=== PATIENT | female | born 1990 | race Caucasian/White ===

== ENCOUNTER 2018-04-23 13:20 | Emergency (ER) | payer OTHER, SELFPAY ==
[2018-04-23 14:41] LABS: Urine Blood TRACE (NEG); Urine Glucose NEGATIVE (NEG); Urine Protein NEGATIVE (NEG); Urine Specific Gravity 1.025 (1.005-1.030)
[2018-04-23] MEDS ORDERED: METOCLOPRAMIDE 10 MG/2mL INJ ONE (14:45)
[2018-04-23] MEDS ORDERED: NA CHLORIDE 0.9% 1,000 ML ONE (14:45)
[2018-04-23 14:48] LABS: Urine Bacteria <20 /HPF (<20); Urine Culture Reflex Order NOT NEEDED; Urine RBC <5 /HPF (NONE SEEN)
[2018-04-23 14:57] LABS: Absolute Lymphocytes (CBC) 1.5 K/uL (0.7-4.9); Absolute Monocytes 0.8 K/uL (0.1-1.3); Absolute Neutrophil 3.8 K/uL (1.8-8.0); Basophils % 0.7 % (0-1.3); Eosinophils % 1.7 % (0-4.4); Hematocrit 46.4 % (36.0-45.0); Lymphocytes % 24.4 % (15.3-44.8); MCH 30.3 pg (27.0-35.0); MCV 89.8 fL (80-100); Monocytes % 12.3 % (3.3-12.3); RBC Red Blood Cell Count 5.17 M/uL (3.86-4.86)
[2018-04-23 15:14] LABS: Albumin 3.6 g/dL (3.4-5.0); Bilirubin Total 0.5 mg/dL (0.2-1.0); Potassium 3.8 mmol/L (3.5-5.1); Protein, Total 7.1 g/dL (6.4-8.2)
--- NOTE | 2018-04-23 16:03 | ER ---
Nurse's Notes [facility] Name: Alva Mondragon Age: 27 yrs Sex: Female : 1990 Arrival Date: 04/23/2018 Time: 13:23 Bed 15 Private MD: Diagnosis: Vomiting;Diarrhea, unspecified;Acute pharyngitis;Bronchitis, not specified as acute or chronic Presentation: 04/23 13:35 Presenting complaint: Patient states: cough, headache, sore throat, ear pain, ss vomiting/diarrhea x 5 days. Transition of care: patient was not received from another setting of care. Resp Distress? No respiratory distress is noted at this time. Onset of symptoms was April 18, 2018. Risk Assessment: Do you want to hurt yourself or someone else? Patient reports no desire to harm self or others. Initial Sepsis Screen: Does the patient meet any 2 criteria? No. Patient's initial sepsis screen is negative. Does the patient have a suspected source of infection? No. Patient's initial sepsis screen is negative. Care prior to arrival: None. 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 - Social history:: Smoking status: Patient uses tobacco products, smokes one-half pack cigarettes per day. - Ebola Screening: : Patient denies exposure to infectious person Patient denies travel to an Ebola-affected area in the 21 days before illness onset. Screenin:06 Abuse screen: Denies threats or abuse. Nutritional screening: No deficits noted. la1 Tuberculosis screening: No symptoms or risk factors identified. Fall Risk None identified. Assessment: 14:05 General: Appears in no apparent distress. Behavior is calm, cooperative. Pain: la1 Complains of pain in frontal headache. Neuro: Level of Consciousness is awake, alert, obeys commands, Oriented to person, place, time, situation. Cardiovascular: Heart tones S1 S2 present Capillary refill < 3 seconds. Respiratory: Airway is patent Respiratory effort is even, unlabored, Respiratory pattern is regular, symmetrical, Breath sounds are clear bilaterally. Respiratory: Reports cough that is non-productive, dry, persistent. GI: Abdomen is non-distended, obese. 14:52 Reassessment: Patient appears in no apparent distress at this time. No changes from la1 previously documented assessment. Patient and/or family updated on plan of care and expected duration. Pain level reassessed. Patient is alert, oriented x 3, equal unlabored respirations, skin warm/dry/pink. Vital Signs: 13:37 BP 109 / 82; Pulse 65; Resp 16; Temp 98.8(TE); Pulse Ox 97% on R/A; Weight 104.33 kg; ss Height 5 ft. 4 in. (162.56 cm); Pain 5/10; 13:37 Body Mass Index 39.48 (104.33 kg, 162.56 cm) ss ED Course: 13:23 Patient arrived in ED. sb2 13:36 Triage completed. ss 13:37 Arm band placed on right wrist. ss 13:48 Anthony Albert, PORSHA is Primary Nurse. la1 14:07 Placed in gown. Bed in low position. Call light in reach. la1 14:08 Cholo Perea PA is PHCP. angel 14:08 Jayden Kelly MD is Attending Physician. angel 14:52 Inserted saline lock: 20 gauge in right antecubital area, using aseptic technique. la1 Blood collected. 16:15 No provider procedures requiring assistance completed. IV discontinued, intact, ss bleeding controlled, No redness/swelling at site. Pressure dressing applied. Administered Medications: 14:52 Drug: NS 0.9% 1000 ml Route: IV; Rate: 1 bolus; Site: right antecubital; la1 14:52 Drug: Reglan 10 mg Route: IVP; Site: right antecubital; la1 15:13 Follow up: Response: No adverse reaction; Nausea is decreased la1 Outcome: 16:02 Discharge ordered by . angel 16:15 Discharged to home ambulatory. ss 16:15 Condition: good 16:15 Discharge instructions given to patient, Instructed on discharge instructions, follow up and referral plans. medication usage, Demonstrated understanding of instructions, follow-up care, medications, Prescriptions given X 2. 16:16 Patient left the ED. ss Signatures: Cholo Perea PA PA jmm Smirch, Shelby, RN RN ss Anthony Albert RN RN la1 Brittanie Benedict 2
--- NOTE | 2018-04-23 16:03 | EDPHYS ---
Physician Documentation [facility] Name: Alva Mondragon Age: 27 yrs Sex: Female : 1990 Arrival Date: 04/23/2018 Time: 13:23 Bed 15 Private MD: ED Physician Jayden Kelly HPI: 04/23 14:31 This 27 yrs old Female presents to ER via Ambulatory with complaints of jmm Cough, Congestion, Vomiting - 6 Weeks Preg. 14:31 The patient or guardian reports cough. Onset: The symptoms/episode began/occurred jmm gradually, 5 day(s) ago. Associated signs and symptoms: Pertinent positives: diarrhea, nausea, sore throat, vomiting. This is a 27 year old female with a history of anxiety, depression that presents to the ED with cough, congestion, sore throat, vomiting and diarrhea beginning approx 5 days ago. LMP 6 weeks prior. Patient denies vaginal bleeding. . 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 - Social history:: Smoking status: Patient uses tobacco products, smokes one-half pack cigarettes per day. - Ebola Screening: : Patient denies exposure to infectious person Patient denies travel to an Ebola-affected area in the 21 days before illness onset. ROS: 14:31 Eyes: Negative for injury, pain, redness, and discharge, Cardiovascular: Negative for jmm chest pain, palpitations, and edema. 14:31 Back: Negative for injury and pain, MS/Extremity: Negative for injury and deformity, Skin: Negative for injury, rash, and discoloration, Neuro: Negative for headache, weakness, numbness, tingling, and seizure. 14:31 Constitutional: Positive for body aches, malaise. 14:31 Respiratory: Positive for cough. 14:31 Abdomen/GI: Positive for nausea and vomiting, diarrhea. 14:31 All other systems are negative. Exam: 14:31 Constitutional: This is a well developed, well nourished patient who is awake, alert, jmm and in no acute distress. 14:31 Eyes: EOMI, no conjunctival erythema appreciated Chest/axilla: Normal chest wall appearance and motion. 14:31 Cardiovascular: Rate: normal, Rhythm: regular. 14:31 Respiratory: the patient does not display signs of respiratory distress, Respirations: normal, Breath sounds: are clear throughout. 14:31 Abdomen/GI: Inspection: obese Bowel sounds: normal, Palpation: soft, nontender, in all quadrants. 14:31 Skin: Appearance: Color: normal in color. 14:31 Neuro: Orientation: is normal, Mentation: is normal, Memory: is normal. 14:31 Psych: Behavior/mood is pleasant, cooperative. Vital Signs: 13:37 BP 109 / 82; Pulse 65; Resp 16; Temp 98.8(TE); Pulse Ox 97% on R/A; Weight 104.33 kg; ss Height 5 ft. 4 in. (162.56 cm); Pain 5/10; 13:37 Body Mass Index 39.48 (104.33 kg, 162.56 cm) ss MDM: 14:21 Patient medically screened. [facility] 16:01 Data reviewed: vital signs, nurses notes, lab test result(s). Counseling: I had a [facility] detailed discussion with the patient and/or guardian regarding: the historical points, exam findings, and any diagnostic results supporting the discharge/admit diagnosis, lab results, the need for outpatient follow up, to return to the emergency department if symptoms worsen or persist or if there are any questions or concerns that arise at home. 04/23 14:21 Order name: Urine Microscopic Only; Complete Time: 14:52 em1 04/23 14:26 Order name: Urine Dipstick--Ancillary (enter results); Complete Time: 14:52 ag 04/23 14:26 Order name: Urine --Ancillary (enter results); Complete Time: 14:52 ag 04/23 14:31 Order name: Strep; Complete Time: 15:14 [facility] 04/23 14:31 Order name: CBC with Diff; Complete Time: 15:14 [facility] 04/23 14:31 Order name: CMP; Complete Time: 15:15 [facility] 04/23 14:31 Order name: Saline Lock; Complete Time: 14:52 [facility] 04/23 15:11 Order name: Throat Culture EDMS Administered Medications: 14:52 Drug: NS 0.9% 1000 ml Route: IV; Rate: 1 bolus; Site: right antecubital; la1 14:52 Drug: Reglan 10 mg Route: IVP; Site: right antecubital; la1 15:13 Follow up: Response: No adverse reaction; Nausea is decreased la1 Disposition: 17:41 Co-signature as Attending Physician, Jayden Kelly MD Available for consultation at ps1 all times. . Disposition: 04/23/18 16:02 Discharged to Home. Impression: Vomiting, Diarrhea, unspecified, Acute pharyngitis, Bronchitis, not specified as acute or chronic. - Condition is Stable. - Discharge Instructions: Acute Bronchitis, Adult, Food Choices to Help Relieve Diarrhea, Adult, Diarrhea, Adult, Pharyngitis. - Prescriptions for Reglan 5 mg Oral tablet - take 1 tablet by ORAL route every 6 hours; 30 tablet. Albuterol Sulfate 90 mcg/actuation - inhale 1-2 puff by INHALATION route every 4-6 hours; 1 Inhaler. - Medication Reconciliation Form, Thank You Letter, Antibiotic Education, Prescription Opioid Use form. - Follow up: Private Physician; When: 2 - 3 days; Reason: Recheck today's complaints, Continuance of care, Re-evaluation by your physician. Signatures: Dispatcher [employer] EDMS Cholo Perea PA PA Cecy Gooden RN RN ss Attema, Lee, RN RN laJayden Brewer MD MD ps1 Corrections: (The following items were deleted from the chart) 16:16 16:02 04/23/2018 16:02 Discharged to Home. Impression: Vomiting; Diarrhea, unspecified; ss Acute pharyngitis; Bronchitis, not specified as acute or chronic. Condition is Stable. Forms are Medication Reconciliation Form, Thank You Letter, Antibiotic Education, Prescription Opioid Use. Follow up: Private Physician; When: 2 - 3 days; Reason: Recheck today's complaints, Continuance of care, Re-evaluation by your physician. angel
== END 2018-04-23 16:16 | disposition home or self-care (01) ==
LOC: ER 13:20
DX: J20.9 Acute bronchitis, unspecified (principal); R19.7 Diarrhea, unspecified; J02.9 Acute pharyngitis, unspecified; O99.331 Smoking (tobacco) complicating pregnancy, first trimester; F17.210 Nicotine dependence, cigarettes, uncomplicated; Z3A.01 Less than 8 weeks gestation of pregnancy; Z88.3 Allergy status to other anti-infective agents
CPT/HCPCS: 36415; 80053; 81003; 81015; 81025; 85025; 87070; 87081; 96374; 99284; J2765; J7030

== ENCOUNTER 2021-03-19 05:01 | Inpatient (IN) | payer OTHER ==
[2021-03-19] MEDS ORDERED: BUTORPHANOL 1 MG/ML INJ IV PRN (06:23)
[2021-03-19] MEDS ORDERED: PROMETHAZINE INJ 25 MG/ML AMP IM PRN (06:23)
[2021-03-19] MEDS ORDERED: Ringers Lactate 1,000 ML IV PRN (06:23)
--- OUTSIDE RECORDS SUMMARY | 2021-03-19 06:32 | XMS REPORT | Continuity of Care Document ---
:1990 Author Organization [facility] t Address [address] [place] [address] Care Team Providers Name Role Phone SARAH Attending Clinician Unavailable Terence STORY Attending Clinician Unavailable Jacinto Attending Clinician Rigo Fry Attending Clinician Payers Payer Name Policy Type Policy Number Effective Date Expiration Date madie [facility] MEDICAID STAR [id number] 2020 00:00:00 Problems Condition Condition Condition Status Onset Resolution Last Treating Co mments Source Name Details Category Date Date Treatment Clinician Date WEEKLY Diagnosis Active 2021-03-13 Mem oria BPP, BMI 6-18 14:04:00 l WEEKLY 00:00: [place] BPP, BMI 00 Active 03/01/2021 MH Pindall BPP Diagnosis Active 2021-02-27 Mem oria 6-16 13:09:00 l BPP 00:00: [place] 00 Active 02/27/2021 MH Pindall ABDOMINAL Diagnosis Active 2020-11-08 Memoria AND BACK 2- 09:16:00 l CRAMPING 08:00: Anthony ABDOMINAL 00 AND BACK CRAMPING Active 11/02/2020 MH Pindall COMP Diagnosis Active 2020-11-20 Memoria ANATOMY US 2 10:39:00 l FOR COMP 00:00: [place] ANOMALIES 00 AND ANATOMY US FOR ANOMALIES AND Active 10/17/2020 MH Pindall EARLY Diagnosis Active 2020-11-05 Mem oria ANATOMY 09-20 17:02:00 l AND CX EARLY 00:00: [place] LENGTH ANATOMY 00 AND CX LENGTH Active 09/20/2020 [facility] NIPT, Diagnosis Active 2019-092020-12-28 Mem oria FIRST 10-21 14:08:00 l TRIMESTER NIPT, 00:00: Girma romero US FOR FIRST 00 VIABILITY TRIMESTER US FOR VIABILITY Active 08/20/2020 [place] O00.90 - Diagnosis Active 2019-092020-07-27 M emoria UNSPECIFIE 09-26 12:33:00 l D ECTOPIC O00.90 - 00:01: Her burnett UNSPECIFIE 00 D ECTOPIC Active 07/27/2020 [facility] Diagnosis Active 2019-092021-03-15 Memoria RELATED-VA 0- 13:18:00 l GINAL 08:00: Anthony 00 RELATED-VA GINAL Active 06/14/2020 P[place] 7-8 WEEKS Diagnosis Active 2018-05-31 Memoria /B 05-31 17:43:00 l LEEDING 7-8 00:00: [place] WEEKS 00 /B LEEDING Active 05/31/2018 [facility] [place] Less than Problem 2018-12-18 Me moria 8 weeks 14:04:51 l gestation Less [place] of than 8 weeks gestation of 12/18/2018 [facility] History of Past Illness Condition Condition Condition Status Onset Resolution Last Treating Co mments Source Name Details Category Date Date Treatment Clinician Date Hemorrhage Problem 2018-12-18 2018-12-18 Memoria in early 06-05 14:04:51 14:04:51 l , 03:58: Girma romero unspecifie Hemorrhage 35 d in early , unspecifie d 06/05/2018 12/18/2018 [facility] Abnormal Problem 2017-2018-12-18 2018-12-18 Memoria uterine 05-31 14:04:51 14:04:51 l and Abnormal 05:00: iGrma romero vaginal uterine 00 bleeding, and unspecifie vaginal d bleeding, unspecifie d 05/31/2018 12/18/2018 [facility] Other Problem 2017-2018-12-18 2018-12-18 M emoria specified 05-31 14:04:51 14:04:51 l diseases Other 05:00: [place] and specified 00 conditions diseases complicati and ng conditions , complicati childbirth ng and the , puerperium childbirth and the puerperium 05/31/2018 12/18/2018 [facility] Allergies, Adverse Reactions, Alerts Allergy Allergy Status Severity Reaction(s) Onset Inactive Treating Comm ents Source Name Type Date Date Clinician Zithroma Zithroma Active Memori a x x l Anthony Social History Smoking Status Start Date Stop Date Source Social History [facility] [place] Medications Ordered Filled Start Stop Current Ordering Indication Dosage Frequency Signature Comments Components Source Medication Medication Date Date Medication? Clinician (SIG) Name Name Metoclopram No 10 mg = 1 M emoria mary 10 MG 05-31 tab, PO, l Oral Tablet 22:56: Q8H, X 5 He rmann [Reglan] 00 day, # 15 tab, 0 Refill(s) Tylenol No 650 mg, Memoria 05-31 Route: PO, l 22:22: Drug form: Anthony 00 TAB, ONCE, Dosing Weight 102.727, kg, Priority: STAT, Start date: 05/31/18 17:22:00 CDT, Stop date: 05/31/18 17:22:00 CDT Saline No Notes: Memoria Flush 0.9% 05-31 (Same as: l 17:53: BD Anthony 00 Posiflush) Vital Signs Vital Name Observation Time Observation Value Comments Source Systolic (mm Hg) 2018-05-31 22:24:00 Keny rial [place] Diastolic (mm Hg) 2018-05-31 22:24:00 Mem orial Anthony Respitory Rate 2018-05-31 22:24:00 Memori al Anthony Temperature Oral (F) 2018-05-31 22:24:00 98.1 F [facility] [place] Temperature Oral (F) 2018-05-31 20:42:00 98.1 F [facility] Respitory Rate 2018-05-31 20:42:00 Memori al [place] Systolic (mm Hg) 2018-05-31 20:42:00 Keny rial Anthony Diastolic (mm Hg) 2018-05-31 20:42:00 Mem orial [place] BMI Calculated 2018-05-31 17:51:00 Memori al [place] Weight 2018-05-31 17:51:00 [facility] [place] Height 2018-05-31 17:51:00 162.56 cm [facility] [place] Respitory Rate 2018-05-31 17:51:00 Margarette al Anthony Temperature Oral (F) 2018-05-31 17:51:00 99.1 F [facility] Heart Rate 2018-05-31 17:51:00 [facility] [place] Systolic (mm Hg) 2018-05-31 17:51:00 Keny sunil Silverann Diastolic (mm Hg) 2018-05-31 17:51:00 Mem orial [place] Procedures Procedure Date / Time Performed Performing Clinician [facility] Skin biopsy [facility] [place] Encounters Start End Encounter Admission Attending Care Care Encounter Source Date/Time Date/Time Type Type Clinicians Facility Department ID 2021-03-13 Outpatient SARAH, [facility] [id number] [place] 12:09:16 [facility] 2021-03-13 Outpatient SARAH, [facility] [id number] [place] 11:36:38 [facility] 2021-03-04 Outpatient [facility] [id number] FB 10:51:08 2021-02-27 Outpatient SARAH, [facility] [id number] [place] 11:46:16 [facility] 2021-02-20 Outpatient SARAH, [facility] [id number] [place] 11:43:30 [facility] 2021-02-19 Outpatient SARAH, [facility] [id number] [place] 14:40:38 [facility] 2021-02-12 Outpatient [facility] [id number] [place] 13:04:55 [facility] 2021-01-29 Outpatient SARAH, [facility] [id number] [place] 11:59:42 [facility] 2021-01-29 Outpatient [facility] [id number] [place] 10:44:30 [facility] 2021-01-19 Outpatient SARAH, [facility] [id number] [place] 04:18:39 [facility] 2021-01-19 Outpatient [facility] [id number] [place] 04:18:39 [facility] 2021-01-08 Inpatient [facility] [id number] MHF B 10:34:38 2021-03-15 2021-03-15 Telephone TETE Pratt [facility] [id number] 00:00:00 00:00:00 Denise SUGAR [id number] [place] [facility] [id number] [address] 4 [id number] AND 2 WOMENS 2021-03-13 2021-03-13 Routine TETE Balderas [facility] [id number] 11:36:28 12:09:17 Brianna SUGAR [id number] [place] [id number] [address] 2 [id number] AND 2 WOMENS 2021-02-27 2021-02-27 Outpatient [facility]FB [facility]FB [id number] MHFB 13:01:00 13:01:00 2021-02-27 2021-02-27 Routine TETE Balderas [facility] [id number] 10:23:54 11:46:16 Brianna SUGAR [id number] [place] [id number] [address] 0 [id number] AND 2 WOMENS 2020-11-20 2020-12-19 Outpatient Jacinto, [facility] MH[facility] [id number] 09:50:00 23:59:00 Subhratha 2020-11-20 2020-11-20 Outpatient [facility]FB [facility]FB [id number] MHFB 09:50:00 09:50:00 2020-10-17 2020-11-15 Outpatient Jacinto, [facility]SL [id number] 09:01:00 23:59:00 Subhratha 2020-11-02 2020-11-02 Emergency E MHFB MHFB [id number] MHFB 17:32:00 17:32:00 2020-10-17 2020-10-17 Outpatient [facility]FB [facility]FB [id number] MHFB 09:01:00 09:01:00 2020-09-17 2020-10-16 Outpatient Jacinto, [facility]SL [facility]SL [id number] 09:26:00 23:59:00 Subhratha 2020-09-17 2020-09-17 Outpatient MHFB [facility]FB [id number] MHFB 09:26:00 09:26:00 2020-07-27 2020-07-27 Outpatient Jacinto, [id number] 12:23:00 23:59:00 Subhratha [id number] 2018-05-31 2018-05-31 Outpatient Lele Fry [facility] [id number] 12:39:00 18:00:00 Q 00 Results Test Description Test Time Test Comments Results Result Comments Source ELECTROLYTES 2018-05-31 11.7 [facility] [place] 20:31:00 ELECTROLYTES 2018-05-31 119 [facility] [place] 20:31:00 ELECTROLYTES 2018-05-31 8.1 [facility] [place] 20:31:00 ELECTROLYTES 2018-05-31 77 [facility] [place] 20:31:00 ELECTROLYTES 2018-05-31 0.70 [facility] Her [place] 20:31:00 ELECTROLYTES 2018-05-31 9 [facility] [place] 20:31:00 ELECTROLYTES 2018-05-31 141 [facility] [place] 20:31:00 ELECTROLYTES 2018-05-31 25 [facility] [place] 20:31:00 ELECTROLYTES 2018-05-31 3.7 [facility] Her [place] 20:31:00 ELECTROLYTES 2018-05-31 108 [facility] [place] 20:31:00 ENDOCRINOLOGY 2018-05-31 [id number] [facility] He rmann 20:31:00 HEMATOLOGY 2018-05-31 0.4 [facility] Bree nn 20:31:00 HEMATOLOGY 2018-05-31 2.2 [facility] [place] 20:31:00 HEMATOLOGY 2018-05-31 5.3 [facility] [place] 20:31:00 HEMATOLOGY 2018-05-31 5.4 [facility] [place] 20:31:00 HEMATOLOGY 2018-05-31 27.5 [facility] [place] 20:31:00 HEMATOLOGY 2018-05-31 0.8 [facility] [place] 20:31:00 HEMATOLOGY 2018-05-31 0.7 [facility] [place] 20:31:00 HEMATOLOGY 2018-05-31 65.6 [facility] [place] 20:31:00 HEMATOLOGY 2018-05-31 0.1 [facility] [place] 20:31:00 HEMATOLOGY 2018-05-31 0.1 [facility] [place] 20:31:00 HEMATOLOGY 2018-05-31 33.5 [facility] [place] nn 20:31:00 HEMATOLOGY 2018-05-31 212 [facility] [place] 20:31:00 HEMATOLOGY 2018-05-31 13.6 [facility] [place] 20:31:00 HEMATOLOGY 2018-05-31 8.3 [facility] nn 20:31:00 HEMATOLOGY 2018-05-31 20:31:00 Test Item Value Reference Range Interpretation Comme nts MCH (test code = MCH) 30.2 pg 27.0-31.0 [facility] [id number] 20:31:0090.2[facility] 2018-05-31 20:31:008.1[facility] [id number] 20:31:004.53[facility] [id number] 20:31:0013.7[facility] [id number] 20:31:0040.9[facility]INE AND [id number] 19:57:002[facility] URINE AND [id number] 19:57:009[facility] [id number] 19:57:00Negative *NA*(05/31/18 2:57 PM)[facility] [id number] 19:57:00Trace *ABN*(05/31/18 2:57 PM)[facility] [id number] 19:57:00Negative (05/31/18 2:57 PM)[facility] [id number] 19:57:002.0[facility] [id number] 19:57:00Moderate *ABN*(05/31/18 2:57 PM)[facility] [id number] 19:57:00Slight *ABN*(05/31/18 2:57 PM)[facility] [id number] 19:57:00 Test Item Value Reference Range Interpretation Comments UA Spec Grav (test code = UA Spec 1.019 1 Grav) [facility] [id number] 19:57:00Yellow *NA*(05/31/18 2:57 PM) [facility] [id number] 19:57:00 Test Item Value Reference Range Interpretation Comments UA pH (test code = UA pH) 5.0 1 5.0-8.0 [facility] [place]
[2021-03-19 06:58] VITALS: BMI 47.2
[2021-03-19] MEDS ORDERED: Ringers Lactate 1,000 ML IV SCH (07:00)
[2021-03-19] MEDS ORDERED: OXYTOCIN/LR 20 UNIT/1,000 ML BAG IV SCH ×2 (07:00→09:00)
[2021-03-19 07:27] LABS: Basophils % 0.4 % (0-1.3); Hematocrit 35.8 % (36.0-45.0); Lymphocytes % 30.4 % (15.3-44.8); MPV 9.5 fL (7.6-11.3); RBC Red Blood Cell Count 4.28 M/uL (3.86-4.86)
[2021-03-19] MEDS ORDERED: METHYLERGONOVINE 0.2MG/ML AMP IM ONE (08:08)
[2021-03-19] MEDS ORDERED: LIDOCAINE 1% MPF 30 ML VIAL ONE (08:10)
[2021-03-19] MEDS ORDERED: METHYLERGONOVINE 0.2MG/ML AMP IM PRN (08:31)
[2021-03-19] MEDS ORDERED: DIPHENHYDRAMINE 25 MG TAB/CAP PO PRN (08:31)
[2021-03-19] MEDS ORDERED: Oxycodone HCl/Acetaminophen 1 TAB TAB PO PRN (08:31)
[2021-03-19] MEDS ORDERED: BISACODYL 10 MG RECTAL SUPP PR PRN (08:31)
[2021-03-19] MEDS ORDERED: DOCUSATE NA/SENNA CONC 1 TAB PO PRN (08:31)
[2021-03-19] MEDS ORDERED: ACETAMINOPHEN 500 MG TAB PO PRN (08:31)
[2021-03-19] MEDS: Oxycodone HCl/Acetaminophen 1 TAB TAB PO PRN (09:16)
[2021-03-19] MEDS: IBUPROFEN 200 MG TAB PO PRN ×2 (09:16→22:57)
--- NOTE | 2021-03-19 09:42 | PREOPHP ---
Date of Admission: 03/19/2021 History Of Present Illness: This is a 30-year-old 3, para 1, previous history of del eugenia that apparently did not survive, 38 weeks 1 day, followed antepartum in the [facility], came into our institution reporting rupture of membranes, indeed rupture of membra naomi had occurred, clear fluid. The patient was 1 to 2 cm, 70% to 80% effaced, baby with normal heart tones. The patient was given the options of leaving to go to [place] or staying here. She elect ed stay here. The patient went to [facility], but is very uncooperative and is not pushing effectively and declines Pitocin. Her family is trying to work with the patient, but she stated is very uncoope rative. Family History: Not contributory. Allergies: SHE HAS A HISTORY OF ERYTHROMYCIN ALLERGY. Past Surgical History: No previous surgeries that we are aware of. Physical Examination: HEENT: Clear. Pupils equal, round, reactive to light and accommodation. Conjunctivae well perfused . No oral, lingual, or buccal lesion. Breast: Not done. The patient term size. She is a large woman, 275 pounds. Extremities: Clear. Assessment And Plan: As stated, she is completely dilated, but declines to push effectively and decl ariana Pitocin. We are awaiting delivery, which should occur reasonably soon. HARRIS/QUAN Voice ID: [id number]
--- NOTE | 2021-03-19 19:03 | OP ---
Surgeon: Noe Magaña MD Alva Mondragon is a 30-year-old 3, para 1, premature delivery apparently 24 weeks or thereabo uts that almost immediately. The patient has been on progesterone injections during the pregnan cy, which her has been administering. Came to our facility with rupture of membranes 1.5 cm 80% effaced, vertex, and in early labor. Decided to stay. Went rapidly to complete. Second stage o f about 30-45 minutes, primarily because the patient would not push and was not cooperative, which sh e did. She was a rapid delivery of a 7 pounds 3 ounce male infant. Nuchal cord x1. Apgars 9 and 9. Small first-degree laceration involving the right labia minora, sutured with 2-0 chromic after loca l infiltration. Schultze delivery of the placenta, which inspected and noted to be intact and normal . Mild uterine hypotonus. 0.2 mg of Methergine IM as well as IV drip Pitocin and massage. Estimate d blood loss 350-400 cc. Labs are pending, but the patient is doing well at this time. We have no p renatal record on her, but at this point, it appears to be normal with routine vaginal deli very at 38 weeks and 1 day. HARRIS/QUAN Voice ID: [id number] Report ID: [id number]
[2021-03-19 20:51] LABS: Barbiturates NEGATIVE (NEGATIVE); Benzodiazepines NEGATIVE (NEGATIVE); Cocaine NEGATIVE (NEGATIVE); METHAMPHETAM NEGATIVE (NEGATIVE); Methadone NEGATIVE (NEGATIVE); Opiates NEGATIVE (NEGATIVE); Phencyclidine NEGATIVE (NEGATIVE); THC Cannibis NEGATIVE (NEGATIVE)
[2021-03-19 21:02] LABS: Urine Appearance CLOUDY (Clear); Urine Bilirubin NEGATIVE (Negative); Urine Blood 3+ (Negative); Urine Color YELLOW (Yellow); Urine Glucose NEGATIVE (Negative); Urine Protein NEGATIVE (Negative); Urine Specific Gravity 1.015 (1.005-1.030); Urine Urobilinogen 0.2 mg/dL (0.2-1.0)
[2021-03-19 21:05] LABS: Urine Microscopic Reflex ORDER UMIC
[2021-03-19 21:30] LABS: Urine Bacteria >50 /HPF (<20); Urine RBC TNTC /HPF (NONE SEEN)
[2021-03-20 00:10] LABS: RPR (Rapid Plasma Reagin) NON-REACT (NON-REACT)
[2021-03-20] MEDS: Oxycodone HCl/Acetaminophen 1 TAB TAB PO PRN (04:21)
[2021-03-20] MEDS ORDERED: MEASLES,MUMPS,RUBELLA VAC 0.5ML SQVAC ONE (07:40)
--- NOTE | 2021-03-20 09:03 | DS ---
This is a 30-year-old 3, para 0, 1 miscarriage, apparently early in the and 1 ken ture delivery at 21 weeks that did not survive. Followed antepartum by [facility], was given [place]an injections on a weekly basis and restricted activity. Came into our institution in ne[place] y labor with rupture of membranes and decided to stay at our institution. Went rapidly to complete, second stage of about 30 minutes. The patient uncooperative as far as pushing, but finally began to push and expelled the baby quickly thereafter. A 7 pound 3 ounce infant. Loose nuchal cord x1. Apga rs 9 and 9. First-degree laceration involving the right labia minora, sutured with running locked st itch of 2-0 chromic after local infiltration. Schultze delivery of the placenta, which was inspected and noted to be intact and normal. Blood loss of about 300 to 350 cc initially. Mildly hypotonic. 0.2 mg of Methergine was given IM as well as massage. ; afebrile, ambulating. Lochia is normal. She requests rubella immunization before she is dismissed. We will of course comply. She h as had her Tdap immunization during the , but other family members have not. She was given full dismissal instructions. She is to call her clinic and they will tell her what to do next. She knows to report any temperature elevation of 100 degrees or greater, severe pain, heavy bleeding, or any other type of abnormalities. Final Diagnoses: Intrauterine gestation at approximately 38 weeks and 1 day as best as can be determ ined, rupture of membranes, vaginal delivery. Rubella immunization offered. Full post talk. HARRIS/ELLIOTL Voice ID: [id number] Report ID: [id number]
[2021-03-20] MEDS: IBUPROFEN 200 MG TAB PO PRN (13:33)
[2021-03-20 14:22] VITALS: BP 100/72; TEMP 97.5
[2021-03-21 13:27] LABS: HBsAG Nonreactive (Nonreactive)
== END 2021-03-20 14:00 | disposition home or self-care (01) | DRG 807 ==
LOC: L&D 05:01 → 2ND-WC 06:18
PROVIDERS: ADMIT Specialist; ATTEND Specialist
PROC: 10E0XZZ Delivery of Products of Conception, External Approach (ICD-10-PCS; principal; 2021-03-19)
PROC: 0HQ9XZZ Repair Perineum Skin, External Approach (ICD-10-PCS; 2021-03-19)
PROC: 4A1H7CZ Monitoring of Products of Conception, Cardiac Rate, Via Natural or Artificial Opening (ICD-10-PCS; 2021-03-19)
PROC: 10H073Z Insertion of Monitoring Electrode into Products of Conception, Via Natural or Artificial Opening (ICD-10-PCS; 2021-03-19)
DX: O70.0 First degree perineal laceration during delivery (principal); Z37.0 Single live birth; O62.2 Other uterine inertia; Z3A.38 38 weeks gestation of pregnancy; Z23 Encounter for immunization; Z20.822 Contact with and (suspected) exposure to COVID-19
CPT/HCPCS: 36415; 80307; 81003; 81015; 82947; 85025; 86592; 86762; 87077; 87086; 87088; 87186; 87340; G0433; J0595; J2210; J2550; J2590; U0003

== ENCOUNTER 2021-03-24 16:02 | Emergency (ER) | payer OTHER ==
--- OUTSIDE RECORDS SUMMARY | 2021-03-24 16:05 | XMS REPORT | Continuity of Care Document ---
:1990 Author Organization [facility] t Address [address] [place] [address] Care Team Providers Name Role Phone SARAH Attending Clinician Unavailable Terence STORY Attending Clinician Unavailable Jacinto Attending Clinician Rigo Fry Attending Clinician Payers Payer Name Policy Type Policy Number Effective Date Expiration Date madie [facility] MEDICA[facility] STAR [id number] 2020 00:00:00 Problems Condition Condition Condition Status Onset Resolution Last Treating Co mments Source Name Details Category Date Date Treatment Clinician Date WEEKLY Diagnosis Active 2021-03-20 Mem oria BPP, BMI 6-18 11:00:00 l WEEKLY 00:00: [place] BPP, BMI 00 Active 03/01/2021 MH Diamond BPP Diagnosis Active 2021-02-27 Mem oria 6-16 13:09:00 l BPP 00:00: [place] 00 Active 02/27/2021 MH Diamond ABDOMINAL Diagnosis Active 2020-11-08 Memoria AND BACK 2- 09:16:00 l CRAMPING 08:00: [place] ABDOMINAL 00 AND BACK CRAMPING Active 11/02/2020 MH Diamond COMP Diagnosis Active 2020-11-20 Memoria ANATOMY US 2- 10:39:00 l FOR COMP 00:00: [place] ANOMALIES 00 AND ANATOMY US FOR ANOMALIES AND Active 10/17/2020 MH Diamond EARLY Diagnosis Active 2020-11-05 Mem oria ANATOMY 1- 17:02:00 l AND CX EARLY 00:00: [place] LENGTH ANATOMY 00 AND CX LENGTH Active 09/20/2020 Diamond NIPT, Diagnosis Active 2019-092020-12-28 Mem oria FIRST 10-21 14:08:00 l TRIMESTER NIPT, 00:00: Girma romero US FOR FIRST 00 VIABILITY TRIMESTER US FOR VIABILITY Active 08/20/2020 Diamond O00.90 - Diagnosis Active 2019-092020-07-27 M emoria UNSPECIFIE 09-26 12:33:00 l D ECTOPIC O00.90 - 00:01: Her burnett UNSPECIFIE 00 D ECTOPIC Active 07/27/2020 [facility] Diagnosis Active 2019-092021-03-15 Memoria RELATED-VA 0- 13:18:00 l GINAL 08:00: Anthony 00 RELATED-VA GINAL Active 06/14/2020 Diamond 7-8 WEEKS Diagnosis Active 2018-05-31 Memoria /B 05-31 17:43:00 l LEEDING 7-8 00:00: [place] WEEKS 00 /B LEEDING Active 05/31/2018 [facility] [place] Less than Problem 2018-12-18 Me moria 8 weeks 14:04:51 l gestation Less Anthony of than 8 weeks gestation of 12/18/2018 [facility] History of Past Illness Condition Condition Condition Status Onset Resolution Last Treating Co mments Source Name Details Category Date Date Treatment Clinician Date Hemorrhage Problem 2018-12-18 2018-12-18 Memoria in early 06-05 14:04:51 14:04:51 l , 03:58: Girma romero unspecifie Hemorrhage 35 d in early , unspecifie d 06/05/2018 12/18/2018 [facility] Abnormal Problem 2018-12-18 2018-12-18 Memoria uterine 05-31 14:04:51 14:04:51 l and Abnormal 05:00: Girma romero vaginal uterine 00 bleeding, and unspecifie vaginal d bleeding, unspecifie d 05/31/2018 12/18/2018 [facility] Other Problem 2018-12-18 2018-12-18 M emoria specified 05-31 14:04:51 14:04:51 l diseases Other 05:00: Anthony and specified 00 conditions diseases complicati and ng conditions , complicati childbirth ng and the , puerperium childbirth and the puerperium 05/31/2018 12/18/2018 [facility] Allergies, Adverse Reactions, Alerts Allergy Allergy Status Severity Reaction(s) Onset Inactive Treating Comm ents Source Name Type Date Date Clinician Zithroma Zithroma Active Memori a x x l [place] Social History Smoking Status Start Date Stop Date Source Social History [facility] Medications Ordered Filled Start Stop Current Ordering [...] 05-31 Route: PO, l 22:22: Drug form: [place] 00 TAB, ONCE, Dosing Weight 102.727, kg, Priority: STAT, Start date: 05/31/18 17:22:00 CDT, Stop date: 05/31/18 17:22:00 CDT Saline No Notes: Memoria Flush 0.9% 05-31 (Same as: l 17:53: BD [place] 00 Posiflush) Vital Signs Vital Name Observation Time Observation Value Comments Source Systolic (mm Hg) 2018-05-31 22:24:00 Keny rial Anthony Diastolic (mm Hg) 2018-05-31 22:24:00 Mem orial [place] Respitory Rate 2018-05-31 22:24:00 Memori al [place] Temperature Oral (F) 2018-05-31 22:24:00 98.1 F [facility] [place] Temperature Oral (F) 2018-05-31 20:42:00 98.1 F [facility] [place] Respitory Rate 2018-05-31 20:42:00 Memori al [place] Systolic (mm Hg) 2018-05-31 20:42:00 Keny rial [place] Diastolic (mm Hg) 2018-05-31 20:42:00 Mem orial [place] BMI Calculated 2018-05-31 17:51:00 Memori al [place] Weight 2018-05-31 17:51:00 [facility] [place] Height 2018-05-31 17:51:00 162.56 cm [facility] Respitory Rate 2018-05-31 17:51:00 Memori al [place] Temperature Oral (F) 2018-05-31 17:51:00 99.1 F [facility] [place] Heart Rate 2018-05-31 17:51:00 [facility] Systolic (mm Hg) 2018-05-31 17:51:00 Keny riaori [place] Diastolic (mm Hg) 2018-05-31 17:51:00 Mem orial [place] Procedures Procedure Date / Time Performed Performing Clinician [facility] e Skin biopsy [facility] Encounters Start End Encounter Admission Attending Care Care Encounter Source Date/Time Date/Time Type Type Clinicians Facility Department ID 2021-03-13 Outpatient SARAH, [facility] [id number] [place] 12:09:16 [facility] 2021-03-13 Outpatient SARAH, [facility] [id number] [place] 11:36:38 [facility] 2021-03-04 Outpatient MHFB MHFB [id number] MH FB 10:51:08 2021-02-27 Outpatient SARAH, [facility] [id number] [place] 11:46:16 [facility] 2021-02-20 Outpatient SARAH, [facility] [id number] [place] 11:43:30 [facility] 2021-02-19 Outpatient SARAH, [facility] [id number] [place] 14:40:38 [facility] 2021-02-12 Outpatient [facility] [id number] [place] 13:04:55 [facility] 2021-01-29 Outpatient SARAH, [facility] [id number] [place] 11:59:42 [facility] 2021-01-29 Outpatient [facility] [id number] [place] 10:44:30 [facility] 2021-01-19 Outpatient SARAH, [facility] [id number] [place] 04:18:39 [facility] 2021-01-19 Outpatient [facility] [id number] [place] 04:18:39 [facility] 2021-01-08 Inpatient MHFB MHFB [id number] MHF B 10:34:38 2021-03-15 2021-03-15 Telephone TETE Pratt [facility] [id number] 00:00:00 00:00:00 Denise SUGAR 350.1.58 [place] [id number] [id number] AND 2 WOMENS 2021-03-13 2021-03-13 Routine TETE Balderas [facility] [id number] 11:36:28 12:09:17 Brianna SUGAR [id number] [place] [id number] [id number] AND 2 WOMENS 2021-02-27 2021-02-27 Outpatient MHFB MHFB [id number] MHFB 13:01:00 13:01:00 2021-02-27 2021-02-27 Routine TETE Balderas [facility] [id number] 10:23:54 11:46:16 Brianna SUGAR 350.1..58 [place] [id number] 2 [id number] AND 2 WOMENS 2020-11-20 2020-12-19 Outpatient Jacinto, MHSL MHSL [id number] 09:50:00 23:59:00 Subhratha 2020-11-20 2020-11-20 Outpatient MHFB MHFB [id number] MHFB 09:50:00 09:50:00 2020-10-17 2020-11-15 Outpatient Jacinto, MHSL MHSL [id number] 09:01:00 23:59:00 Subhratha 2020-11-02 2020-11-02 Emergency E MHFB MHFB [id number] MHFB 17:32:00 17:32:00 2020-10-17 2020-10-17 Outpatient MHFB MHFB [id number] MHFB 09:01:00 09:01:00 2020-09-17 2020-10-16 Outpatient Jacinto, MHSL MHSL [id number] 09:26:00 23:59:00 Subhratha 2020-09-17 2020-09-17 Outpatient MHFB MHFB [id number] MHFB 09:26:00 09:26:00 2020-07-27 2020-07-27 Outpatient Jacinto, [id number] 12:23:00 23:59:00 Subhratha [id number] 2018-05-31 2018-05-31 Outpatient Lele Fry [facility] [id number] 12:39:00 18:00:00 Q 00 Results Test Description [...] code = MCH) 30.2 pg 27.0-31.0 [facility] [id number] 20:31:0090.2[facility] 2018-05-31 20:31:008.1[facility] [id number] 20:31:004.53[facility] [id number] 20:31:0013.7[facility] [id number] 20:31:0040.9[facility] [id number] 19:57:002[facility] [place] URINE AND [id number] 19:57:009[facility] [id number] 19:57:00Negative *NA*(05/31/18 2:57 PM)[facility] [id number] 19:57:00Trace *ABN*(05/31/18 2:57 PM)[facility] [id number] 19:57:00Negative (05/31/18 2:57 PM)[facility] [id number] 19:57:002.0[facility] [id number] 19:57:00Moderate *ABN*(05/31/18 2:57 PM)[facility] [id number] 19:57:00Slight *ABN*(05/31/18 2:57 PM)[facility] [id number] 19:57:00 Test Item Value Reference Range Interpretation Comments UA Spec Grav (test code = UA Spec 1.019 1 Grav) [facility] [id number] 19:57:00Yellow *NA*(05/31/18 2:57 PM) [facility] [id number] 19:57:00 Test Item Value Reference Range Interpretation Comments UA pH (test code = UA pH) 5.0 1 5.0-8.0 [facility] [place]
[2021-03-24 16:52] LABS: Basophils % 0.9 % (0-1.3); Hematocrit 33.4 % (36.0-45.0); Lymphocytes % 27.7 % (15.3-44.8); MPV 8.4 fL (7.6-11.3); RBC Red Blood Cell Count 3.88 M/uL (3.86-4.86)
[2021-03-24 16:55] LABS: Protime INR 0.99
[2021-03-24 17:15] LABS: ALT/SGPT 62 U/L (12-78); AST/SGOT 28 U/L (15-37); Albumin 2.6 g/dL (3.4-5.0); Alkaline Phosphatase 102 U/L (45-117); BUN Blood Urea Nitrogen 13 mg/dL (7-18); Bicarbonate 27 mmol/L (21-32); Bilirubin Direct < 0.1 mg/dL (0-0.2); Bilirubin Total 0.3 mg/dL (0.2-1.0); Glucose Level 86 mg/dL (74-106); Potassium 3.8 mmol/L (3.5-5.1); Protein, Total 6.4 g/dL (6.4-8.2); Sodium Level 144 mmol/L (136-145); Troponin (Emerg Dept Use Only) < 0.02 ng/mL (0.0-0.045)
--- NOTE | 2021-03-24 17:30 | RAD REPORT ---
EXAM DESCRIPTION: [place] Single View03/24/2021 5:25 pm CLINICAL HISTORY: Chest pain COMPARISON: none FINDINGS: The lungs appear clear of acute infiltrate. The heart is normal size IMPRESSION: No acute abnormalities displayed
--- NOTE | 2021-03-24 17:45 | RAD REPORT ---
EXAM DESCRIPTION: US - Pelvis Complete - 03/24/2021 5:18 pm CLINICAL HISTORY: Vaginal bleeding COMPARISON: None FINDINGS: The uterus measures 15 x 7 x 11 centimeters. The echotexture is inhomogeneous. The endomet rial stripe measures 5 millimeters The right and left ovary normal in size and echotexture The right and left adnexal unremarkable No significant free fluid IMPRESSION: Normal endometrial stripe thickness
--- NOTE | 2021-03-24 18:40 | EDPHYS ---
Physician Documentation [facility] Name: Alva Mondragon Age: 30 yrs Sex: Female : 1990 Arrival Date: 03/24/2021 Time: 16:03 Bed 14 Private MD: ED Physician Mac Worley HPI: 03/24 16:39 This 30 yrs old Female presents to ER via Ambulatory with complaints of Post pm1 Problem - vaginal bleeding/clots, Pelvic Pain, Dizziness, Back Pain. 16:39 Onset: The symptoms/episode began/occurred 2 day(s) ago. Modifying factors: The pm1 symptoms are alleviated by nothing, the symptoms are aggravated by nothing. Associated signs and symptoms: Pertinent positives: chest pain, Pertinent negatives: diarrhea, dysuria, fever, nausea, vomiting, shortness of breath. Severity of symptoms: in the emergency department the symptoms are actually worse. The patient is not sexually active. The patient has not experienced similar symptoms in the past. The patient has been recently seen by a physician: Patient with vaginal delivery 5 days ago. Patient presents with complaints of continued vaginal bleeding after vaginal delivery 5 days ago. 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 Flu vaccine is not up to date. - Social history:: Smoking status: Patient reports the use of cigarette tobacco products, denies chronic smoking, but will smoke occasionally. ROS: 16:39 Positive for pelvic pain, vaginal bleeding, Negative for urinary symptoms. pm1 16:39 Constitutional: Negative for fever, chills, and weight loss, Eyes: Negative for injury, pain, redness, and discharge, ENT: Negative for injury, pain, and discharge, Neck: Negative for injury, pain, and swelling. 16:39 Abdomen/GI: Negative for abdominal pain, nausea, vomiting, diarrhea, and constipation. 16:39 MS/Extremity: Negative for injury and deformity, Skin: Negative for injury, rash, and discoloration. 16:39 Cardiovascular: Positive for chest pain, Negative for edema, palpitations. 16:39 Back: Positive for of the low back area, Pain. 16:39 Neuro: Positive for dizziness, Negative for headache, numbness, tingling, weakness. Exam: 16:39 Constitutional: This is a well developed, well nourished patient who is awake, alert, pm1 and in no acute distress. Head/Face: Normocephalic, atraumatic. Chest/axilla: Normal chest wall appearance and motion. Nontender with no deformity. No lesions are appreciated. Cardiovascular: Regular rate and rhythm with a normal S1 and S2. No gallops, murmurs, or rubs. Normal PMI, no JVD. No pulse deficits. Respiratory: Lungs have equal breath sounds bilaterally, clear to auscultation and percussion. No rales, rhonchi or wheezes noted. No increased work of breathing, no retractions or nasal flaring. 16:39 Skin: Warm, dry with normal turgor. Normal color with no rashes, no lesions, and no evidence of cellulitis. MS/ Extremity: Pulses equal, no cyanosis. Neurovascular intact. Full, normal range of motion. 16:39 Abdomen/GI: Inspection: obese Palpation: abdomen is soft and non-tender. 16:39 : no bogginess present with palpation to suprapubic area. 16:39 Neuro: Exam negative for acute changes, Orientation: is normal, Mentation: is normal, Motor: is normal, moves all fours. Vital Signs: 16:10 BP 114 / 72; Pulse 84; Resp 18 S; Temp 97.4(TE); Pulse Ox 100% on R/A; Height 5 ft. 4 ca1 in. (162.56 cm) (R); Pain 5/10; 18:16 BP 151 / 72; Pulse 55; Resp 17; Pulse Ox 100% on R/A; Pain 5/10; ap3 MDM: 16:19 Patient medically screened. pm1 18:36 Data reviewed: vital signs. Data interpreted: Pulse oximetry: on room air is 100 %. pm1 Interpretation: normal. Counseling: I had a detailed discussion with the patient and/or guardian regarding: the historical points, exam findings, and any diagnostic results supporting the discharge/admit diagnosis, lab results, radiology results, the need for outpatient follow up, an OB/Gyne specialist, to return to the emergency department if symptoms worsen or persist or if there are any questions or concerns that arise at home. 03/24 16:30 Order name: Basic Metabolic Panel; Complete Time: 17:22 pm1 03/24 16:30 Order name: CBC with Diff; Complete Time: 17:22 pm03/24 16:30 Order name: LFT's; Complete Time: 17:22 pm03/24 16:30 Order name: PT-INR; Complete Time: 17:22 pm03/24 16:30 Order name: Troponin (emerg Dept Use Only); Complete Time: 17:22 pm03/24 16:30 Order name: XRAY Chest (1 view); Complete Time: 17:30 pm1 03/24 16:30 Order name: EKG; Complete Time: 16:31 pm03/24 16:30 Order name: Cardiac monitoring; Complete Time: 16:41 pm03/24 16:30 Order name: EKG - Nurse/Tech; Complete Time: 18:17 pm03/24 16:30 Order name: IV Saline Lock; Complete Time: 16:41 pm03/24 16:30 Order name: Labs collected and sent; Complete Time: 16:41 pm03/24 16:30 Order name: O2 Per Protocol; Complete Time: 16:41 pm03/24 16:30 Order name: O2 Sat Monitoring; Complete Time: 16:41 pm03/24 16:30 Order name: US Pelvis Complete; Complete Time: 17:46 pm1 Administered Medications: No medications were administered Disposition Summary: 03/24/21 18:39 Discharge Ordered Location: Home pm1 Problem: new pm1 Symptoms: have improved pm1 Condition: Stable pm1 Diagnosis - Mild vaginal bleeding post vaginal delivery pm1 - Mild vaginal bleeding post vaginal delivery - lochia pm1 Followup: pm1 - With: Emergency Department - When: As needed - Reason: Worsening of condition Followup: pm1 - With: Private Physician - When: 2 - 3 days - Reason: Recheck today's complaints, Continuance of care, Re-evaluation by your physician Discharge Instructions: - Discharge Summary Sheet pm1 - Care After Vaginal Delivery pm1 Forms: - Medication Reconciliation Form pm1 - Thank You Letter pm1 - Antibiotic Education pm1 - Prescription Opioid Use pm1 Signatures: Dispatcher [employer] EDMS Marinas, Vern, VP MEDICAL VP MEDICAL pm1 Acob, Mitzi, RN RN ca1
--- NOTE | 2021-03-24 18:40 | ER ---
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 Still bleeding bright red and ca1 everyday, I been passing blood clots which is bigger and bigger each day. I have pelvic pain, lower back pain, abdomen tender touch. Sharp pains on back and stomach. Reports shakiness and dizziness and on off chest pains x 1 - 2 days. Coronavirus screen: Client denies travel out of the [place] in the last 14 days. At this time, the client does not indicate any symptoms associated with coronavirus-19. Ebola Screen: Patient negative for fever greater than or equal to 101.5 degrees Fahrenheit, and additional compatible Ebola Virus Disease symptoms Patient denies exposure to infectious person. Patient denies travel to an Ebola-affected area in the 21 days before illness onset. No symptoms or risks identified at this time. Initial Sepsis Screen: Does the patient meet any 2 criteria? No. Patient's initial sepsis screen is negative. Does the patient have a suspected source of infection? No. Patient's initial sepsis screen is negative. Risk Assessment: Do you want to hurt yourself or someone else? Patient reports no desire to harm self or others. Onset of symptoms was March 24, 2021. 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 Flu vaccine is not up to date. - Social history:: Smoking status: Patient reports the use of cigarette tobacco products, denies chronic smoking, but will smoke occasionally. Screenin:35 Abuse screen: Denies threats or abuse. Nutritional screening: No deficits noted. ap3 Tuberculosis screening: No symptoms or risk factors identified. Fall Risk None identified. Assessment: 16:33 General: Appears in no apparent distress. uncomfortable, Behavior is calm, cooperative, ap3 appropriate for age. Pain: Complains of pain in pelvis Pain does not radiate. Pain currently is 6 out of 10 on a pain scale. Pain began 2-3 days ago. Is intermittent. Neuro: Level of Consciousness is awake, alert, obeys commands, Oriented to person, place, time, situation, Appropriate for age Gait is steady, Speech is normal. Cardiovascular: Capillary refill < 3 seconds Patient's skin is warm and dry. Cardiovascular: Reports chest pain, since intermittent for 2-3 days. Respiratory: Airway is patent Respiratory effort is even, unlabored, Respiratory pattern is regular, symmetrical, Denies shortness of breath. GI: No signs and/or symptoms were reported involving the gastrointestinal system. : Reports vaginal bleeding that is bright red, with clots, heavy flow 5 days post . EENT: No signs and/or symptoms were reported regarding the EENT system. Derm: No signs and/or symptoms reported regarding the dermatologic system. Vital Signs: 16:10 BP 114 / 72; Pulse 84; Resp 18 S; Temp 97.4(TE); Pulse Ox 100% on R/A; Height 5 ft. 4 ca1 in. (162.56 cm) (R); Pain 5/10; 18:16 BP 151 / 72; Pulse 55; Resp 17; Pulse Ox 100% on R/A; Pain 5/10; ap3 ED Course: 16:03 Patient arrived in ED. as 16:15 Triage completed. ca1 16:15 Arm band placed on right wrist. ca1 16:19 Vern Shelton NP is PHCP. pm1 16:19 Mac Worley MD is Attending Physician. pm1 16:24 Kathrine Portillo, PORSHA is Primary Nurse. ap3 16:35 Patient has correct armband on for positive identification. Call light in reach. Side ap3 rails up X 1. Adult w/ patient. Pulse ox on. NIBP on. Door closed. Noise minimized. 16:40 Initial lab(s) drawn, by me, sent to lab. Inserted saline lock: 20 gauge in right Blood kj1 collected. 17:18 US Pelvis Complete In Process Unspecified. EDMS 17:25 XRAY Chest (1 view) In Process Unspecified. EDMS 18:59 No provider procedures requiring assistance completed. IV discontinued, intact, ap3 bleeding controlled, No redness/swelling at site. Pressure dressing applied. Administered Medications: No medications were administered Outcome: 18:39 Discharge ordered by MD. pm1 18:59 Discharged to home ambulatory, with family. ap3 18:59 Condition: good 18:59 Discharge instructions given to patient, Instructed on discharge instructions, follow up and referral plans. Demonstrated understanding of instructions, follow-up care. 18:59 Patient left the ED. ap3 Signatures: Dispatcher [employer] EDDE Breanne Kilpatrick Patrick, NEUROLOGY EPILEPSY PHYSICIAN NEUROLOGY EPILEPSY PHYSICIAN pm1 Deedee Hsu 3 Kathrine Portillo RN RN 3 Mitzi Lim RN RN ca1 Britney Baird kj1 Corrections: (The following items were deleted from the chart) 16:50 16:48 Repeat lab(s) drawn. by hijuwan kj1
[2021-03-24 19:17] VITALS: TEMP 97.4; O2SAT 100
[2021-03-24 19:22] VITALS: BP 151/72
--- NOTE | 2021-03-25 16:08 | EKG ---
Test Date: 2021-03-24 Test Time: 18:03:32 Sisal Operator: SHELBI MEASUREMENT RESULTS: Intervals: Rate: 53 NC: 158 QRSD: 74 QT: 402 QTc: 377 [place]: P: 46 NC: 158 QRS: 7 T: 20 INTERPRETIVE STATEMENTS: Sinus bradycardia Cannot rule out Anterior infarct, age undetermined Abnormal ECG No previous ECG available for comparison Electronically Signed On 03-25-21 16:04:15 CDT by Tim Hubbard
== END 2021-03-24 18:59 | disposition home or self-care (01) ==
LOC: ER 16:02
DX: O72.1 Other immediate postpartum hemorrhage (principal); F17.210 Nicotine dependence, cigarettes, uncomplicated; Z88.3 Allergy status to other anti-infective agents
CPT/HCPCS: 36415; 71045; 76856; 80048; 80076; 84484; 85025; 85610; 93005; 99284

== ENCOUNTER 2021-12-29 21:58 | Emergency (ER) | payer OTHER ==
--- OUTSIDE RECORDS SUMMARY | 2021-12-29 22:08 | XMS REPORT | Continuity of Care Document ---
:1990 Author Organization [facility] t Address [address] [place] [address] Care Team Providers Name Role Phone SARAH Attending Clinician Unavailable Terence STORY Attending Clinician Unavailable Tim EVANS Attending Clinician Unavailable Payers Payer Name Policy Type Policy Number Effective Date Expiration Date S madie [facility] MEDICAID STAR [id number] 2020 00:00:00 [facility] STAR [id number] 2018 00:00:00 Problems Condition Condition Condition Status Onset Resolution Last Treating Co mments Source Name Details Category Date Date Treatment Clinician Date Cervical Cervical Disease Active Overview: [facility] incompeten incompeten 5-18 [facility] ce, ce, 00:00: g of this delivered, delivered, 00 note with with might be different complicati complicati from the on on original. demise at 21 weeks Obesity Obesity Disease Active [facility] affecting affecting 8-30 Heal th 00:00: 00 Hx of Hx of Disease Active Overview: [facility] 8[facility] in in 00:00: g of this prior prior 00 note , , might be currently currently different from the original. At 21 weeks Supervisio Supervisio Disease Active U T n of n of 8-29 Health high-risk high-risk 00:00: 00 Allergies, Adverse Reactions, Alerts Allergy Allergy Status Severity Reaction(s) Onset Inactive Treating Comm ents Source Name Type Date Date Clinician Azithrom Propensi Active Severe [facility] ycin ty to 4-30 Health adverse 00:00: reaction 00 s AZITHROM DRUG Active N/V [facility] YCIN 8-16 ity of (BULK) 00:00: [place] [facility] Social History Social Habit Start Date Stop Date Quantity Comments Source ASSERTION 2020-07-09 [facility]:00 [facility] Std Drinks [facility] Binge Exposure to Not sure [facility] SARS-CoV-2 (event) Tobacco use and 2021-01-29 2021-01-29 Never used [facility] exposure 00:00:00 00:00:00 Alcohol intake 2021-01-29 2021-01-29 Lifetime [facility] 00:00:00 00:00:00 non-drinker (finding) History SDOH 2021-01-11 2021-01-11 1 [facility] Alcohol Frequency 00:00:00 00:00:00 Sex Assigned At [birth year] [facility] 00:00:00 00:00:00 Smoking Status Start Date Stop Date Source Current every day smoker 2021-01-29 00:00:00 [facility] Medications Ordered Filled Start Stop Current Ordering Indication Dosage Frequency Signature Comments Components Source Medication Medication Date Date Medication? Clinician (SIG) Name Name Renetta Arnold Yes [facility] MG/1.1ML 6-01 Health solution 00:00: auto-inject or [place] 275 0 Yes [facility] MG/1.1ML 6-01 Health solution 00:00: auto-inject or Ren[place] 275 0 Yes [facility] MG/1.1ML 6-01 Health solution 00:00: auto-inject or [place] 275 0 Yes [facility] MG/1.1ML 6-01 Health solution 00:00: auto-inject or [place] 275 0 Yes [facility] MG/1.1ML 6-01 Health solution 00:00: auto-inject 00 or Prenat-FeCb 2019- Yes TAKE 1 [facility] n-FeAspGl-F 1-13 [facility] (OB 00:00: DAILY Complete 00 Petite) 35-5-1-200 MG capsule Prenat-FeCb 2019- Yes TAKE 1 [facility] n-FeAspGl-F 1-13 [facility] (OB 00:00: DAILY Complete Petite) 35-5-1-200 MG capsule Prenat-FeCb 2019-09 Yes TAKE 1 [facility] n-FeAspGl-F 1-13 [facility] (OB 00:00: DAILY Complete 00 Petite) 35-5-1-200 MG capsule Prenat-FeCb 2019-09 Yes TAKE 1 [facility] n-FeAspGl-F 1-13 [facility] (OB 00:00: DAILY Complete 00 Petite) 35-5-1-200 MG capsule Prenat-FeCb 2019-09 Yes TAKE 1 [facility] n-FeAspGl-F 1-13 [facility] (OB 00:00: DAILY Complete 00 Petite) 35-5-1-200 MG capsule Immunizations Ordered Immunization Filled Immunization Date Status Commen ts Source Name Name Tdap 2021-01-29 Completed [facility] 00:00:00 Tdap 2021-01-29 Completed [facility] 00:00:00 Tdap 2021-01-29 Completed [facility] 00:00:00 Tdap 2021-01-29 Completed [facility] 00:00:00 Tdap 2021-01-29 Completed [facility] 00:00:00 Tdap 2021-01-29 Completed [facility] 00:00:00 Tdap 2021-01-29 Completed [facility] 00:00:00 Tdap 2021-01-29 Completed [facility] 00:00:00 Tdap 2021-01-29 Completed [facility] 00:00:00 Vital Signs Vital Name Observation Time Observation Value Comments Source Systolic blood pressure 2021-03-13 16:40:00 111 mm[Hg] [facility] Diastolic blood pressure 2021-03-13 16:40:00 78 mm[Hg] [facility] Body weight 2021-03-13 16:40:00 124.739 kg [facility] BMI 2021-03-13 16:40:00 47.20 kg/m2 [facility] Systolic blood pressure 2021-03-13 16:40:00 111 mm[Hg] [facility] Diastolic blood pressure 2021-03-13 16:40:00 78 mm[Hg] [facility] Body weight 2021-03-13 16:40:00 124.739 kg [facility] BMI 2021-03-13 16:40:00 47.20 kg/m2 [facility] Systolic blood pressure 2021-02-27 15:33:00 127 mm[Hg] [facility] Diastolic blood pressure 2021-02-27 15:33:00 82 mm[Hg] [facility] Body weight 2021-02-27 15:33:00 124.739 kg [facility] BMI 2021-02-27 15:33:00 47.20 kg/m2 [facility] Systolic blood pressure 2021-02-27 15:33:00 127 mm[Hg] [facility] Diastolic blood pressure 2021-02-27 15:33:00 82 mm[Hg] [facility] Body weight 2021-02-27 15:33:00 124.739 kg [facility] BMI 2021-02-27 15:33:00 47.20 kg/m2 [facility] Systolic blood pressure 2021-02-20 16:10:00 113 mm[Hg] [facility] Diastolic blood pressure 2021-02-20 16:10:00 72 mm[Hg] [facility] Heart rate 2021-02-20 16:10:00 97 /min [facility] Body temperature 2021-02-20 16:10:00 35.78 Yun [facility] Body weight 2021-02-20 16:10:00 123.832 kg [facility] BMI 2021-02-20 16:10:00 46.86 kg/m2 [facility] Systolic blood pressure 2021-01-29 16:12:00 101 mm[Hg] [facility] Diastolic blood pressure 2021-01-29 16:12:00 63 mm[Hg] [facility] Body weight 2021-01-29 16:12:00 121.564 kg [facility] BMI 2021-01-29 16:12:00 46.00 kg/m2 [facility] Procedures Procedure Date / Time Performed Performing Clinician Sourc e STREP B SCREEN 2021-02-27 16:35:00 Sarah [facility] Encounters Start End Encounter Admission Attending Care Care Encounter Source Date/Time Date/Time Type Type Clinicians Facility Department ID 2021-03-13 Outpatient SARAH [facility] [id number] [place] 12:09:16 [facility] 2021-02-27 Outpatient SARAH [facility] [id number] [place] 11:46:16 [facility] 2021-02-12 Outpatient [facility] [id number] [place] 13:04:55 Health 2021-01-29 Outpatient SARAH, [facility] [id number] [place] 11:59:42 [facility] 2021-01-29 Outpatient [facility] [id number] [place] 10:44:30 Health 2021-01-19 Outpatient [facility] [id number] [place] 04:18:39 Health 2021-03-15 2021-03-15 Telephone Terence, [facility] [id number] 00:00:00 00:00:00 Denise SUGAR [id number] [facility] [id number] [phone] AND 2 WOMENS 2021-03-15 2021-03-15 Telephone Gary Pratta [facility] 1.2.840 .114 [id number] [place] 00:00:00 00:00:00 Bervickie, Denise SUGAR [id number] [facility] [place] [id number] [id number] AND 2 WOMENS 2021-03-13 2021-03-13 Routine Sarah, [facility] [id number] [facility] [place] 11:36:28 12:09:17 Brianna [place] [id number] H [facility] MED [id number] [id number] AND 2 WOMENS 2021-03-13 2021-03-13 Routine Sarah, [facility] [id number] [facility] 11:36:28 12:09:17 Brianna [place] [id number] [place] [facility] [id number] [id number] AND 2 WOMENS 2021-02-27 2021-02-27 Routine Sarah, [facility] [id number] [place] 10:23:54 11:46:16 Brianna [place] [id number] [facility] [place] [facility] [id number] [id number] AND 2 WOMENS 2021-02-27 2021-02-27 Routine Sarah, [facility] 1.2.840.114 [id number] 10:23:54 11:46:16 Brianna SU[place] [id number] [place] [facility] [id number] [id number] AND 2 WOMENS 2021-02-20 2021-02-20 Routine Sarah, [facility] 1.2.840.114 [id number] [place] 11:02:44 11:38:16 Brianna [facility] [id number] [facility] [id number] [address] [id number] AND 2 WOMENS 2021-02-14 2021-02-14 Telephone [facility]Denise johnston [facility] 1.2.840 .114 [id number] [place] 00:00:00 00:00:00 Denise Pratt [place] [id number] Health [facility] [id number] [id number] AND 2 WOMENS 2021-01-29 2021-01-29 Routine Sarah, [facility] 1.2.840.114 [id number] [place] 10:12:37 11:59:50 Brianna SU[facility] [id number] [facility] [id number] [id number] AND 2 WOMENS 2020-07-26 2020-07-26 Outpatient [facility] [id number] [facility] 09:45:00 09:45:00 MELODY [facility] 2020-07-26 2020-07-26 Outpatient R [facility] [id number] [facility] 09:15:00 09:15:00 [id number] [facility] Results Test Description Test Time Test Comments Results Result Comments Source Treptococcus Group B Culture 2021-03-03 11:00:00 Test Item Value Reference Range Interpretation Comme nts STREPTOCOCCUS, GROUP B SEE NOTE ?ST REPTOCOCCUS, GROUP B CULTURE (test code = CULTURE ? ?Micro Number: ? [id number]) ? ?[id number] ?Te st Status: ? ? ? Final ?Spec imen Source: ? VAGINA ?Speci men Quality: ?Adequate ?Resu lt: ?No group B Str eptococcus isolated ? Note per CDC gu idelines optimal recover y is ? ach ieved by swabbing both t he lower vagina and ? rectum (throu gh the anal sphincter). RAC (test code = RAC) Performing Organization Information: ? ?Site ID: [id number] ? ?Name: [facility] ? ?Address: [address] [place] [id number] ? ?Director: RAUL DAVIES MD [facility] [id number] 11:00:00 Test Item Value Reference Range Interpretation Comments STREPTOCOCCUS, SEE NOTE ?STREPTOCOC CUS, GROUP B CULTURE GROUP B CULT URE ? (test code = ?Micro Number: ? ? [id number]) ?[id number] ?Test Status: ? ? ? F inal ?Specimen Sourc e: ? VAGINA ?Specime n Quality: ?Adequ ate ?Result: ?No group B Streptococcus isolated ? Note pe r CDC guidelines opti mal recovery is ? ach ieved by swabbing bot h the lower vagina an d ? rectum (through the anal sphincter) . RAC (test code Performing = RAC) Organization Information: ? ?Site ID: [id number] ? ?Name: [facility] ? ?Address: [address] [place] [id number] ? ?Director: RAUL DAVIES MD [facility]
--- NOTE | 2021-12-29 23:04 | ER ---
Nurse's Notes [facility] Name: Alva Mondragon Age: 31 yrs Sex: Female : 1990 Arrival Date: 12/29/2021 Time: 22:02 Bed Waiting Private MD: Diagnosis: Hordeolum internum left upper eyelid Presentation: 12/29 23:00 Chief complaint: Patient states: pt c/o left eye swelling and pain. Coronavirus screen: as6 At this time, the client does not indicate any symptoms associated with coronavirus-19. Ebola Screen: No symptoms or risks identified at this time. Initial Sepsis Screen: Does the patient meet any 2 criteria? No. Patient's initial sepsis screen is negative. Does the patient have a suspected source of infection? No. Patient's initial sepsis screen is negative. Risk Assessment: Do you want to hurt yourself or someone else? Patient reports no desire to harm self or others. Onset of symptoms was December 24, 2021. 23:00 Method Of Arrival: Ambulatory as6 23:00 Acuity: PAULO 4 as6 Triage Assessment: 23:06 General: Appears in no apparent distress. Behavior is calm, cooperative. Pain: as6 Complains of pain in left eye. Derm: redness and swelling to left eye. 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 - Social history:: Smoking status: Patient reports the use of cigarette tobacco products, smokes one-half pack cigarettes per day. - Family history:: not pertinent. - Hospitalizations: : No recent hospitalization is reported. Screenin:10 Abuse screen: Denies threats or abuse. Denies injuries from another. Nutritional as6 screening: No deficits noted. Tuberculosis screening: No symptoms or risk factors identified. Fall Risk None identified. Vital Signs: 23:00 Pulse 66; Resp 18 S; Temp 98.3(O); Pulse Ox 100% on R/A; Weight 108.86 kg (R); Height 5 as6 ft. 4 in. (162.56 cm) (R); Pain 4/10; 23:07 BP 105 / 74; as6 23:00 Body Mass Index 41.20 (108.86 kg, 162.56 cm) as6 ED Course: 22:02 Patient arrived in ED. ja2 22:51 Denilson Vaca MD is Attending Physician. rn 23:03 Triage completed. as6 23:06 Arm band placed on. as6 23:10 No provider procedures requiring assistance completed. Patient did not have IV access as6 during this emergency room visit. 23:11 Patient has correct armband on for positive identification. as6 Administered Medications: No medications were administered Outcome: 23:04 Discharge ordered by . rn 23:11 Discharged to home ambulatory. as6 23:11 Condition: stable 23:11 Discharge instructions given to patient, Instructed on discharge instructions, follow up and referral plans. medication usage, Demonstrated understanding of instructions, follow-up care, medications, Prescriptions given X 1. 23:11 Patient left the ED. as6 Signatures: Denilson Vaca MD MD rn Alexander, Jessica [facility] Tyree Alanis RN RN as6
--- NOTE | 2021-12-29 23:05 | EDPHYS ---
Physician Documentation [facility] Name: Alva Mondragon Age: 31 yrs Sex: Female : 1990 Arrival Date: 12/29/2021 Time: 22:02 Bed Waiting Private MD: ED Physician Denilson Vaca HPI: 12/29 23:00 This 31 yrs old Female presents to ER via Unassigned with complaints of Eye Swelling. rn 23:00 The patient is experiencing pain, redness, The patient sustained None. to the left eye, rn caused by an unknown mechanism. Onset: The symptoms/episode began/occurred at an unknown time. Duration: the symptoms are continuous. Aggravated by nothing. Alleviated by nothing. Patient does not utilize any form of vision correction. Severity of symptoms: At their worst the symptoms were mild in the emergency department the symptoms are unchanged. The patient has experienced similar episodes in the past. The patient has not recently seen a physician. Pt reports left upper eyelid pain and redness, feels like has a stye, no trauma, no chemical exposure, no splash. No vision correction. Vision normal. rest of face/head feels fine.. 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 - Social history:: Smoking status: Patient reports the use of cigarette tobacco products, smokes one-half pack cigarettes per day. - Family history:: not pertinent. - Hospitalizations: : No recent hospitalization is reported. ROS: 23:02 Constitutional: Negative for fever, chills, and weight loss, Eyes: + redness and rn swelling to left upper eyelid ENT: Negative for injury, pain, and discharge, Neck: Negative for injury, pain, and swelling, Neuro: Negative for headache, weakness, numbness, tingling, and seizure. Exam: 23:02 Visual Acuity: Visual acuity is within normal limits. rn 23:02 Constitutional: This is a well developed, well nourished patient who is awake, alert, and in no acute distress. Head/Face: Normocephalic, atraumatic. Eyes: Pupils equal round and reactive to light, extra-ocular motions intact. Normal sclera. No corneal irregularity, no foreign body, + possible hordeolum left upper inner eyelid at location of tenderness. No drainage. Vital Signs: 23:00 Pulse 66; Resp 18 S; Temp 98.3(O); Pulse Ox 100% on R/A; Weight 108.86 kg (R); Height 5 as6 ft. 4 in. (162.56 cm) (R); Pain 4/10; 23:07 BP 105 / 74; as6 23:00 Body Mass Index 41.20 (108.86 kg, 162.56 cm) as6 MDM: 22:52 Patient medically screened. rn 23:02 Differential diagnosis: Corneal abrasion of Foreign body in Infectious conjunctivitis rn in [facility]. Data reviewed: vital signs, nurses notes, and as a result, I will discharge patient. Counseling: I had a detailed discussion with the patient and/or guardian regarding: the historical points, exam findings, and any diagnostic results supporting the discharge/admit diagnosis, the need for outpatient follow up, to return to the emergency department if symptoms worsen or persist or if there are any questions or concerns that arise at home. Special discussion: I discussed with the patient/guardian in detail that at this point there is no indication for admission to the hospital. It is understood, however, that if the symptoms persist or worsen the patient needs to return immediately for re-evaluation. Based on the history and exam findings, there is no indication for further emergent testing or inpatient evaluation. I discussed with the patient/guardian the need to see the orthopedic surgeon for further evaluation of the symptoms. 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
[2021-12-30 00:29] VITALS: TEMP 98.3; O2SAT 100
[2021-12-30 00:30] VITALS: BP 105/74
== END 2021-12-29 23:11 | disposition home or self-care (01) ==
LOC: ER 21:58
DX: H00.024 Hordeolum internum left upper eyelid (principal); F17.210 Nicotine dependence, cigarettes, uncomplicated; F41.8 Other specified anxiety disorders
CPT/HCPCS: 99282